=== PATIENT | female | born 1990 | race Caucasian/White ===

== ENCOUNTER 2020-10-23 22:12 | Outpatient (CLI) | payer BC | END 2020-10-24 01:52 | disposition home or self-care (01) | LOC: GENOP 22:12 | DX: O47.02 False labor before 37 completed weeks of gestation, second trimester (principal); O34.82 Maternal care for other abnormalities of pelvic organs, second trimester; N83.209 Unspecified ovarian cyst, unspecified side; Z3A.25 25 weeks gestation of pregnancy | CPT/HCPCS: 81001; 82731; 96360; 96361 ==

== ENCOUNTER 2020-12-10 15:13 | Outpatient (CLI) | payer BC ==
[2020-12-10 16:03] LABS: RED BLOOD COUNT 3.94 M/UL (4.00-5.10); WHITE BLOOD COUNT 8.2 K/UL (4.5-11.0)
[2020-12-10 16:28] LABS: BUN/CREATININE RATIO 15 (0-10)
== END 2020-12-10 18:41 | disposition other institution (70) ==
LOC: GENOP 15:13
PROVIDERS: Obstetrics & Gynecology
DX: O16.3 Unspecified maternal hypertension, third trimester (principal); O34.83 Maternal care for other abnormalities of pelvic organs, third trimester; N83.209 Unspecified ovarian cyst, unspecified side; O34.219 Maternal care for unspecified type scar from previous cesarean delivery; Z20.822 Contact with and (suspected) exposure to COVID-19; Z3A.32 32 weeks gestation of pregnancy
CPT/HCPCS: 36415; 80053; 82247; 82248; 82570; 82731; 83615; 84156; 84550; 85025; 85379; 85384; 85610; 85730; 96365; 96368; 96372; 96374; J0360; J0702; J3475; J7120; U0002

== ENCOUNTER 2020-12-29 12:38 | Observation (INO) | payer BC ==
[~2020-12-29] VITALS: Ht 152.4 cm; Wt 74.2 kg
[2020-12-29 13:56] LABS: RED BLOOD COUNT 1.79 M/UL (4.00-5.10); WHITE BLOOD COUNT 11.1 K/UL (4.5-11.0)
[2020-12-29 14:06] LABS: HEMOGLOBIN 5.9 gm/dl (12.3-15.3)
[2020-12-29 14:15] LABS: BUN/CREATININE RATIO 22 (0-10)
[2020-12-29] MEDS ORDERED: DOCUSATE SODIU100 MG PO (18:13)
[2020-12-29] MEDS ORDERED: IBU600 MG PO (18:14)
[2020-12-29] MEDS ORDERED: TYLENOL325 MG PO (18:14)
[2020-12-29 21:39] LABS: HEMOGLOBIN 7.5 gm/dl (12.3-15.3)
[2020-12-29] MEDS ORDERED: LABETALOL HCL200 MG PO (22:54)
[2020-12-30 03:55] LABS: HEMOGLOBIN 7.4 gm/dl (12.3-15.3)
[2020-12-30 04:13] LABS: RED BLOOD COUNT 2.39 M/UL (4.00-5.10)
[2020-12-30 05:03] LABS: BUN/CREATININE RATIO 16 (0-10)
[2020-12-30 11:35] LABS: HEMOGLOBIN 8.6 gm/dl (12.3-15.3)
== END 2020-12-30 12:31 | disposition home or self-care (01) ==
LOC: ER1 12:38 → PROG CARE 16:48 → CDU 16:48 → PROG CARE 22:45
PROVIDERS: Nurse Practitioner; ADMIT Internal Medicine
DX: D50.0 Iron deficiency anemia secondary to blood loss (chronic) (principal); J98.11 Atelectasis; N85.2 Hypertrophy of uterus; Z20.822 Contact with and (suspected) exposure to COVID-19; Z98.891 History of uterine scar from previous surgery
CPT/HCPCS: 36415; 36430; 80048; 80053; 81001; 82272; 82607; 82728; 82746; 83540; 83550; 84703; 85014; 85018; 85025; 85045; 85610; 86850; 86900; 86901; 86920; 87040; 93005; 99285; G0378; J1200; J2930; J7050; P9016; Q9967; U0002